=== PATIENT | female | born 1955 | race Caucasian/White ===

== ENCOUNTER 2017-01-29 21:18 | Emergency (ER) | payer BC ==
[2017-01-29] MEDS ORDERED: ONDANSETRON 4 MG/2 ML VIAL IVP STA (22:04)
[2017-01-29] MEDS ORDERED: SODIUM CHLORIDE 0.9% 2,000 ML IV STA (22:04)
--- NOTE | 2017-01-29 22:10 | ED ---
General Adult HPI - General Chief complaint: Abdominal Pain Stated complaint: Dizziness Time Seen by Provider: 01/29/17 21:51 Source: patient, EMS, RN notes reviewed Mode of arrival: EMS Limitations: no limitations - History of Present Illness Initial comments: 61-year-old female presents to the emergency department with a chief complaint of nausea vomiting. Patient was on the float down and she drank all day without eating. She now is having lots of nausea and dizziness. Patient denies any pain any falls.. Patient states that she does not regularly drink. Patient denies any recent fever, chills, shortness of breath, chest pain, back pain, abdominal pain, numbness or tingling, dysuria or hematuria, constipation or diarrhea, headaches or visual changes, or any other current symptoms. - Related Data Home Medications Medication Instructions Recorded Confirmed Estrogen,Dyan/Me-Testosterone 1 tab PO DAILY 01/29/17 01/29/17 [Eemt Ds 1.25-2.5 mg Tablet] Levothyroxine Sodium [Synthroid] 100 mcg PO DAILY 01/29/17 01/29/17 Phentermine HCl 37.5 mg PO DAILY 01/29/17 01/29/17 Allergies Allergy/AdvReac Type Severity Reaction Status Date / Time Sulfa (Sulfonamide Allergy Unknown Verified 01/29/17 21:26 Antibiotics) narcotics Allergy Unknown Uncoded 01/29/17 21:28 Review of Systems ROS Statement: Those systems with pertinent positive or pertinent negative responses have been documented in the HPI. ROS Other: All systems not noted in ROS Statement are negative. Past Medical History Past Medical History: Thyroid Disorder Additional Past Medical History / Comment(s): vertigo History of Any Multi-Drug Resistant Organisms: None Reported Past Surgical History: Hysterectomy, Orthopedic Surgery Additional Past Surgical History / Comment(s): tummy tuck, left knee acl Past Psychological History: No Psychological Hx Reported Smoking Status: Never smoker Past Alcohol Use History: Occasional Past Drug Use History: None Reported General Exam - General Exam Comments Initial Comments: General: The patient is awake and alert, in no distress, and does not appear acutely ill. Eye: Pupils are equal, round and reactive to light, extra-ocular movements are intact; there is normal conjunctiva bilaterally. No signs of icterus. Ears, nose, mouth and throat: There are moist mucous membranes and no oral lesions. Neck: The neck is supple, there is no tenderness. Cardiovascular: There is a regular rate and rhythm. No murmur, rub or gallop is appreciated. Respiratory: Lungs are clear to auscultation, respirations are non-labored, breath sounds are equal. No wheezes, stridor, rales, or rhonchi. Gastrointestinal: Soft, non-distended, non-tender abdomen without masses or organomegaly noted. There is no rebound or guarding present. No CVA tenderness. Bowel sounds are unremarkable. Back: There is no tenderness to palpation in the midline. There is no obvious deformity. No rashes noted. Musculoskeletal: Normal ROM, no tenderness, There is no pedal edema. There is no calf tenderness or swelling. Sensation intact. Pulses equal bilaterally 2+. Neurological: CN II-XII intact, There are no obvious motor or sensory deficits. Coordination appears grossly intact. Speech is normal. Skin: Skin is warm and dry and no rashes or lesions are noted. Psychiatric: Cooperative, appropriate mood & affect, normal judgment. Limitations: no limitations Course Vital Signs 01/29/17 21:19 Temperature 95 F L Pulse Rate 71 Respiratory 24 Rate Blood Pressure 160/84 O2 Sat by Pulse 98 Oximetry Medical Decision Making - Medical Decision Making 61-year-old female presents emergency Department chief complaint of nausea vomiting with alcohol use. At this time the patient is feeling better. This time we did discuss dehydration. We discussed the importance of fluids. We discussed return parameters follow-up and all her questions. She stated that she understood and she is given the plan. She will be discharged. - Lab Data Result diagrams: 01/29/17 22:22 01/29/17 22:22 Lab Results 01/29/17 01/29/17 Range/Units 22:22 22:22 WBC 13.4 H (3.8-10.6) k/uL RBC 4.87 (3.80-5.40) m/uL Hgb 15.1 (11.4-16.0) gm/dL Hct 45.8 (34.0-46.0) % MCV 94.1 (80.0-100.0) fL MCH 31.0 (25.0-35.0) pg MCHC 33.0 (31.0-37.0) g/dL RDW 13.9 (11.5-15.5) % Plt Count 259 (150-450) k/uL Neutrophils % 83 % Lymphocytes % 12 % Monocytes % 3 % Eosinophils % 1 % Basophils % 1 % Neutrophils # 11.1 H (1.3-7.7) k/uL Lymphocytes # 1.7 (1.0-4.8) k/uL Monocytes # 0.4 (0-1.0) k/uL Eosinophils # 0.1 (0-0.7) k/uL Basophils # 0.1 (0-0.2) k/uL Sodium 147 H (137-145) mmol/L Potassium 4.3 (3.5-5.1) mmol/L Chloride 111 H (98-107) mmol/L Carbon Dioxide 20 L (22-30) mmol/L Anion Gap 16 mmol/L BUN 23 H (7-17) mg/dL Creatinine 0.70 (0.52-1.04) mg/dL Est GFR (MDRD) Af Amer >60 (>60 ml/min/1.73 sqM) Est GFR (MDRD) Non-Af >60 (>60 ml/min/1.73 sqM) Glucose 99 (74-99) mg/dL Calcium 8.5 (8.4-10.2) mg/dL Total Bilirubin 0.4 (0.2-1.3) mg/dL AST 34 (14-36) U/L ALT 46 (9-52) U/L Alkaline Phosphatase 87 (38-126) U/L Total Protein 7.2 (6.3-8.2) g/dL Albumin 4.6 (3.5-5.0) g/dL Amylase 43 (30-110) U/L Lipase 154 (23-300) U/L Serum Alcohol 180 mg/dL Disposition Clinical Impression: Dehydration, Alcohol use, Hypernatremia Disposition: HOME SELF-CARE Condition: Stable Instructions: Dehydration (ED) Additional Instructions: Please use medication as discussed. Please follow up with family doctor if symptoms have not improved over the next two days. Please return to the emergency room if your symptoms increase or worsen or for any other concerns. Referrals: Bibiana Kendrick MD [REFERRING] - 1-2 days Time of Disposition: 23:21
[2017-01-29 22:34] LABS: Basophils # (A) 0.1 k/uL (0-0.2); Basophils % (A) 1 %; CHCM 34.2; Eosinophils # (A) 0.1 k/uL (0-0.7); Eosinophils % (A) 1 %; HCT 45.8 % (34.0-46.0); HDW 2.49; HGB 15.1 gm/dL (11.4-16.0); Luc # (Auto) 0.16; Luc % (Auto) 1; Lymphocytes # (A) 1.7 k/uL (1.0-4.8); Lymphocytes % (A) 12 %; MCV 94.1 fL (80.0-100.0); Mean Platelet Volume 7.6; Monocytes # (A) 0.4 k/uL (0-1.0); Monocytes % (A) 3 %; Neutrophils # (A) 11.1 k/uL (1.3-7.7); Neutrophils % (A) 83 %; RBC 4.87 m/uL (3.80-5.40); RDW 13.9 % (11.5-15.5); WBC 13.4 k/uL (3.8-10.6); WBC (Perox) 12.72
[2017-01-29 22:50] LABS: ALT 46 U/L (9-52); AST 34 U/L (14-36); Alkaline Phosphatase 87 U/L (38-126); Amylase 43 U/L (30-110); Anion Gap 16 mmol/L; Blood Urea Nitrogen 23 mg/dL (7-17); Calcium 8.5 mg/dL (8.4-10.2); Carbon Dioxide 20 mmol/L (22-30); Chloride 111 mmol/L (98-107); Glucose 99 mg/dL (74-99); Non-African American GFR(MDRD) >60 (>60 ml/min/1.73 sqM); Potassium 4.3 mmol/L (3.5-5.1); Sodium 147 mmol/L (137-145); Total Bilirubin 0.4 mg/dL (0.2-1.3); Total Protein 7.2 g/dL (6.3-8.2)
[2017-01-29 22:51] LABS: Alcohol 180 mg/dL
[2017-01-29 23:44] VITALS: BP 114/60; PULSE 82; RESP 16; TEMP 97.9
== END 2017-01-29 23:44 | disposition home or self-care (01) ==
LOC: EC 21:18
DX: E86.0 Dehydration (principal); E87.0 Hyperosmolality and hypernatremia; F10.99 Alcohol use, unspecified with unspecified alcohol-induced disorder; E07.9 Disorder of thyroid, unspecified; Z79.890 Hormone replacement therapy; Z88.2 Allergy status to sulfonamides; Z88.5 Allergy status to narcotic agent; Z79.899 Other long term (current) drug therapy
CPT/HCPCS: 36415; 80053; 82150; 83690; 85025; 80320; 99284; 96374; 96361 ×2; J2405

== ENCOUNTER → 2018-10-04 | Outpatient (CLI) | payer BC ==
--- NOTE | 2018-10-08 08:05 | MM ---
Reason for exam: screening (asymptomatic). Last mammogram was performed 2 years and 1 month ago. History: Patient is postmenopausal and has history of high-risk lesion on a previous biopsy at age 57. High risk left breast needle localization of both breasts, December 19, 2012. High risk left breast aspiration of the left breast, December 10, 2012. Benign stereotactic core biopsy of the left breast, December 03, 2004. Taking estrogen for 6 years beginning at age 47. Physical Findings: A clinical breast exam by your physician is recommended on an annual basis and results should be correlated with mammographic findings. MG Screening Mammo w CAD Bilateral CC and MLO view(s) were taken. Prior study comparison: September 15, 2016, mammogram, performed at [facility]. July 12, 2016, mammogram, performed at [facility]. February 24, 2015, mammogram, performed at [facility]. December 10, 2012, left breast digital mammogram. November 28, 2012, bilateral digital screening mammo w/CAD. There are scattered fibroglandular densities. Previous mammotome biopsy in the left breast. No significant changes when compared with prior studies. ASSESSMENT: Benign, BI-RAD 2 RECOMMENDATION: Routine screening mammogram of both breasts in 1 year.
== END | disposition home or self-care (01) ==
LOC: RADMAMWWP 15:19
PROVIDERS: ATTEND Family Medicine
DX: Z12.31 Encounter for screening mammogram for malignant neoplasm of breast (principal)
CPT/HCPCS: 77067

== ENCOUNTER → 2020-05-13 | Outpatient (CLI) | payer BC ==
--- NOTE | 2020-05-13 15:53 | BD ---
EXAMINATION TYPE: Axial Bone Density DATE OF EXAM: 05/13/2020 COMPARISON: NONE CLINICAL HISTORY: M [age], osteoporosis Height: 5 FT 7 IN Weight: 229 FRAX RISK QUESTIONS: Alcohol (3 or more units per day): NO Family History (Parent hip fracture): NO Glucocorticoids (More than 3mos): NO (Ex: prednisone, prednisolone, methylprednisolone, dexamethasone, and hydrocortisone). History of Fracture in Adulthood: NO Secondary Osteoporosis: 1. Type 1 Diabetes: NO 2. Hyperthyroidism: NO 3. Menopause before 45: NO 4. Malnutrition: NO 5. Chronic liver disease: NO Rheumatoid Arthritis: NO Current Tobacco Use: NO RISK FACTORS HISTORY OF: Family History of Osteoporosis: YES Active: YES Diet low in dairy products/other sources of calcium: NO Postmenopausal woman: TOTAL HYST AGE 46 Take estrogen and/or progesterone medications: HAS BEEN ON HRT SINCE AGE 46 Lost more than 2 inches in height since high school: NO MEDICATIONS: Thyroid Medications: YES Which medication: SYNTHROID How Long: UNSURE APPROX 10 YEARS Additional Medications: SYNTHROID, MOTRIN, ADIPEX, Additional History: EXAM MEASUREMENTS: Bone mineral densitometry was performed using the [email or web address] System. Bone mineral density as measured about the Lumbar spine is: ----- L1-L4(G/cm2): 1.389 T Score Values are as follows: ----- L2: 0.4 ----- L3: 2.4 ----- L4: 2.8 ----- L1-L4: 1.7 BASELINE Bone mineral density about the R hip (g/cm2): 0.969 Bone mineral density about the L hip (g/cm2): 0.998 T Score values are as follows: -----R Neck: -0.5 -----L Neck: -0.3 -----R Total: 0.5 -----L Total: 0.6 BASELINE IMPRESSION: Normal (Values between +1 and -1 indicate normal bone mass). Consider repeating this study in 5 year s or sooner if there is some new clinical indication. NOTE: T-SCORE=SD OF THE YOUNG ADULT MEAN.
--- NOTE | 2020-05-15 08:45 | MM ---
Reason for exam: screening (asymptomatic). Last mammogram was performed 1 year and 7 months ago. History: Patient is postmenopausal and has history of high-risk lesion on a previous biopsy at age 57. High risk left breast needle localization of both breasts, December 19, 2012. High risk left breast aspiration of the left breast, December 10, 2012. Benign stereotactic core biopsy of the left breast, December 03, 2004. Taking estrogen for 7 years 7 months beginning at age 47. Physical Findings: A clinical breast exam by your physician is recommended on an annual basis and results should be correlated with mammographic findings. MG Screening Mammo w CAD Bilateral CC and MLO view(s) were taken. XCCL view(s) were taken of the right breast. Prior study comparison: October 04, 2018, bilateral MG screening mammo w CAD. September 15, 2016, mammogram, performed at [facility]. The breast tissue is heterogeneously dense. This may lower the sensitivity of mammography. Previous mammotome biopsy in the left breast. Asymmetric breast tissue left breast near clip placement. There is no discrete abnormality. ASSESSMENT: Benign, BI-RAD 2 RECOMMENDATION: Routine screening mammogram of both breasts in 1 year.
== END | disposition home or self-care (01) ==
LOC: RADMAMWWP 08:53
PROVIDERS: ATTEND Family Medicine
DX: Z12.31 Encounter for screening mammogram for malignant neoplasm of breast (principal); M81.0 Age-related osteoporosis without current pathological fracture
CPT/HCPCS: 77067; 77080

== ENCOUNTER → 2021-05-25 | Outpatient (CLI) | payer BC ==
--- NOTE | 2021-05-27 11:59 | MM ---
Reason for exam: screening (asymptomatic). Last mammogram was performed 1 year ago. History: Patient is postmenopausal and has history of high-risk lesion on a previous biopsy at age 57. High risk left breast needle localization of both breasts, December 19, 2012. High risk left breast aspiration of the left breast, December 10, 2012. Benign stereotactic core biopsy of the left breast, December 03, 2004. Taking estrogen for 7 years 7 months beginning at age 47. Physical Findings: A clinical breast exam by your physician is recommended on an annual basis and results should be correlated with mammographic findings. MG Screening Mammo w CAD Bilateral CC and MLO view(s) were taken. Prior study comparison: May 13, 2020, bilateral MG screening mammo w CAD. October 04, 2018, bilateral MG screening mammo w CAD. The breast tissue is heterogeneously dense. This may lower the sensitivity of mammography. Previous mammotome biopsy in the left breast. There is no discrete abnormality. ASSESSMENT: Benign, BI-RAD 2 RECOMMENDATION: Routine screening mammogram of both breasts in 1 year.
== END | disposition home or self-care (01) ==
LOC: RADMAMWWP 08:46
PROVIDERS: ATTEND Family Medicine
DX: Z12.31 Encounter for screening mammogram for malignant neoplasm of breast (principal); Z78.0 Asymptomatic menopausal state
CPT/HCPCS: 77067

== ENCOUNTER 2022-02-08 15:20 | Emergency (ER) | payer BC ==
[2022-02-08 15:33] VITALS: TEMP 98.2
--- NOTE | 2022-02-08 16:03 | ED ---
General Adult HPI - General Chief complaint: Fall Stated complaint: back pain Time Seen by Provider: 02/08/22 15:29 Source: patient, EMS Mode of arrival: EMS Limitations: no limitations - History of Present Illness Initial comments: Dictation was produced using [employer] dictation software. please excuse any grammatical, word or spelling errors. Chief Complaint: 66-year-old female presents emergency Department with back pain after fall History of Present Illness: A 66-year-old female just prior to arrival she suffered a fall. 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 She slipped on one of the slippery steps. She landed on her right lower back. Patient states the pain was immediate and severe. Denies any numbness feeling paresthesias to the right lower extremity. Patient is brought in by EMS. She received 10 mg of morphine and 4 mg of Zofran. States that the morphine helped. Patient has no other complaints. Patient denies any head trauma. Denies any loss of consciousness. Patient does not take any and I coagulation medications. The ROS documented in this emergency department record has been reviewed and confirmed by me. Those systems with pertinent positive or negative responses have been documented in the HPI. All other systems are other negative and/or noncontributory. PHYSICAL EXAM: General Impression: Alert and oriented x3, not in acute distress HEENT: Normocephalic atraumatic, extra-ocular movements intact, pupils equal and reactive to light bilaterally, mucous membranes moist. Cardiovascular: Heart regular rate and rhythm Chest: Able to complete full sentences, no retractions, no tachypnea Abdomen: abdomen soft, non-tender, non-distended, no organomegaly Musculoskeletal: Pulses present and equal in all extremities, no peripheral edema Back: Mild palpatory tenderness to the right lower back area Motor: no focal deficits noted Neurological: CN II-XII grossly intact, no focal motor or sensory deficits noted Skin: Intact with no visualized rashes Psych: Normal affect and mood ED course: 66-year-old female presents emergency department for lower back pain after fall. Signs upon arrival are within acceptable limits. C-spine of the lumbar and pelvis shows no acute bony abnormalities. Patient will tarry with minimal complications. Presentation consistent with back contusion. Patient be discharged. - Related Data Home Medications Medication Instructions Recorded Confirmed Ascorbic Acid [Vitamin C] 1,000 mg PO DAILY 02/08/22 02/08/22 Biotin [Biotin Disolve] 10,000 mcg PO DAILY 02/08/22 02/08/22 Estrogen- Methyltestos H.S. 1 tab PO HS 02/08/22 02/08/22 Ibuprofen [Motrin] 800 mg PO Q8H PRN 02/08/22 02/08/22 Levothyroxine Sodium [Synthroid] 88 mcg PO DAILY 02/08/22 02/08/22 Magnesium Oxide [Magnesium] 500 mg PO HS 02/08/22 02/08/22 Multivitamins, Thera [Multivitamin 1 tab PO DAILY 02/08/22 02/08/22 (formulary)] [place]-3/Dha/Epa/Fish Oil [Fish Oil 1 cap PO HS 02/08/22 02/08/22 1,000 mg Softgel] Allergies Allergy/AdvReac Type Severity Reaction Status Date / Time Iodinated Contrast Media Allergy Rash/Hives Verified 02/08/22 16:31 Sulfa (Sulfonamide Allergy Unknown Verified 02/08/22 16:31 Antibiotics) narcotics Allergy Nausea & Uncoded 02/08/22 16:31 Vomiting Review of Systems ROS Statement: Those systems with pertinent positive or pertinent negative responses have been documented in the HPI. ROS Other: All systems not noted in ROS Statement are negative. 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 History of Any Multi-Drug Resistant Organisms: None Reported Past Surgical History: Hysterectomy, Orthopedic Surgery Additional Past Surgical History / Comment(s): tummy tuck, left knee acl Past Psychological History: No Psychological Hx Reported Smoking Status: Never smoker Past Alcohol Use History: Occasional Past Drug Use History: None Reported General Exam Limitations: no limitations Course Vital Signs 02/08/22 15:21 Temperature 98.2 F Pulse Rate 55 L Respiratory 18 Rate Blood Pressure 166/92 O2 Sat by Pulse 100 Oximetry Disposition Clinical Impression: Back contusion Disposition: HOME SELF-CARE Condition: Good Instructions (If sedation given, give patient instructions): Fall Prevention for Older Adults (ED), Acute Low Back Pain (ED) Is patient prescribed a controlled substance at d/c from ED?: No Referrals: Maury Holt DO [Primary Care Provider] - 1-2 days Time of Disposition: 17:14
--- NOTE | 2022-02-08 17:00 | CT ---
EXAMINATION TYPE: CT lumbar spine wo con DATE OF EXAM: 02/08/2022 COMPARISON: HISTORY: Fall. Pain CT DLP: 1442.6 mGycm Automated exposure control for dose reduction was used. Images obtained from T12 through S3 vertebra with no contrast. There is severe narrowing of the L5-S1 disc space with spur formation. There is vacuum disc and disc space narrowing at L4-5. There is a minimal subluxation of 3 mm at L4-5. No lumbar compression fractu re. There is hypertrophic facet arthropathy throughout the lumbar spine. There is no evidence of lumbar paraspinal mass. There is lateral recess stenosis and relative spinal stenosis at L4-5 due to the subluxation deformity and facet arthropathy. There are small posterior di sc bulging at L3-4. IMPRESSION: Degenerative first-degree L4-5 spondylolisthesis. Mild spinal stenosis at L4-5 advanced discogenic di sease at L5-S1 with fusion of L5 and S1 bodies. No acute bony abnormality.
--- NOTE | 2022-02-08 17:03 | CT ---
EXAMINATION TYPE: CT pelvis wo con DATE OF EXAM: 02/08/2022 COMPARISON: None HISTORY: fall, pain CT DLP: 673.8 mGycm Automated exposure control for dose reduction was used. Images obtained from the iliac crests to the subtrochanteric femurs without contrast. The sacroiliac joints are intact. The pelvic ring is intact. Hip joint spaces are fairly normal. No e vidence of hip dysplasia. No sign of avascular necrosis. Proximal femurs are intact. The bladder distends smoothly. There is retained fecal material in the rectum that measures 7 cm. No free fluid in the pelvis. Sacrum and coccyx appear intact. No evidence of focal bone destruction. IMPRESSION: Negative CT scan of the pelvis. There is some mild constipation noted. No fracture.
[2022-02-08 17:57] VITALS: BP 153/84; PULSE 61; RESP 16
== END 2022-02-08 17:57 | disposition home or self-care (01) ==
LOC: EC 15:20
DX: S30.0XXA Contusion of lower back and pelvis, initial encounter (principal); E07.9 Disorder of thyroid, unspecified; Z91.041 Radiographic dye allergy status; Z88.2 Allergy status to sulfonamides; Z88.5 Allergy status to narcotic agent; Z79.890 Hormone replacement therapy; W01.0XXA Fall on same level from slipping, tripping and stumbling without subsequent striking against object, initial encounter
CPT/HCPCS: 72131; 72192; 99284

== ENCOUNTER → 2022-06-10 | Outpatient (CLI) | payer BC ==
--- NOTE | 2022-06-10 15:58 | BD ---
EXAMINATION TYPE: Axial Bone Density DATE OF EXAM: 06/10/2022 COMPARISON: 05/13/2020 CLINICAL HISTORY: 66 years year old Female. ICD-10 CODE: Z780 POST MENOPAUSU Height: 67 IN Weight: 218 LBS FRAX RISK QUESTIONS: Secondary Osteoporosis: 3. Menopause before 45: PARTIAL HYST AGE 40; OVARIES REMOVED AGE 45 RISK FACTORS HISTORY OF: History of Wrist Fracture: RT WRIST AGE 12 Family History of Osteoporosis: YES (M) GRANDMOTHER, SISTER Active: Y Postmenopausal woman: PARTIAL HYST AGE 40; OVARIES REMOVED AGE 45 Take estrogen and/or progesterone medications: YES How lon YEARS MEDICATIONS: Thyroid Medications: YES Which medication: Synthroid How Lon+ YEARS Additional Medications: MAGNESIUM, VIT D, MULTI VIT, FISH OIL, VIT C, APPLE CIDER VINEGAR, SYNTHROID, ESTROTEST EXAM MEASUREMENTS: Bone mineral densitometry was performed using the [employer] System. Bone mineral density as measured about the Lumbar spine is: ----- L1-L4(G/cm2): 1.418 T Score Values are as follows: ----- L1: 0.6 ----- L2: 0.6 ----- L3: 2.5 ----- L4: 3.1 ----- L1-L4: 2.0 Bone mineral density has: Increased 2.4% since study of: 05/13/2020 Bone mineral density about the R hip (g/cm2): 0.956 Bone mineral density about the L hip (g/cm2): 0.988 T Score values are as follows: -----R Neck: -0.6 -----L Neck: -0.4 -----R Total: 0.3 -----L Total: 0.5 Bone mineral density has: Decreased -1.5% since study of: 05/13/2020 FRAX%s: The graph provided illustrates a 7.2 chance for a major osteoporotic fx and a 0.4 chance for the hips probability for fx in 10 years time. IMPRESSION: Normal (Values between +1 and -1 indicate normal bone mass). Consider repeating this study in 5 year s or sooner if there is some new clinical indication. NOTE: T-SCORE=SD OF THE YOUNG ADULT MEAN.
--- NOTE | 2022-06-13 18:40 | MM ---
Reason for Exam: Screening (asymptomatic). Last screening mammogram was performed 12 month(s) ago. Patient History: Menarche at age 12. First Full-Term at age 29. Left ovary removed at age 46. Right ovary removed at age 46. Hysterectomy at age 41. Postmenopausal. Currently using Estrogen, beginning at age 47 for 7 years, 7 months. 12/19/2012, Bilateral High risk Excisional Biopsy. 12/10/2012, High risk Cyst Aspiration on the left side. 12/03/2004, Benign Stereotactic Core Biopsy on the left side. Risk Values: Chasity 5 year model risk: 2.8%. NCI Lifetime model risk: 9.9%. Prior Study Comparison: 10/04/2018 Bilateral Screening Mammogram, [facility]. 05/13/2020 Bilateral Screening Mammogram, [facility]. 05/25/2021 Bilateral Screening Mammogram, [facility]. Tissue Density: The breast tissue is heterogeneously dense. This may lower the sensitivity of mammography. Findings: Analyzed By CAD. Bilateral reduction mammoplasty changes demonstrated in the interval. Microclip left breast from prior biopsy. Allowing for interval postsurgical change, areas of asymmetric density appear to have been present previously. No significant change from prior exams. Overall Assessment: Benign, BI-RAD 2 Management: Screening Mammogram of both breasts in 1 year. 1. Patient should continue monthly self breast exams. 2. A clinical breast exam by your physician is recommended on an annual basis. 3. This exam should not preclude additional follow-up of suspicious palpable abnormalities. Electronically signed and approved by: Jenifer Lemons M.D. Radiologist
== END | disposition home or self-care (01) ==
LOC: RADMAMWWP 13:58
PROVIDERS: ATTEND Family Medicine
DX: Z12.31 Encounter for screening mammogram for malignant neoplasm of breast (principal); Z78.0 Asymptomatic menopausal state; Z90.722 Acquired absence of ovaries, bilateral
CPT/HCPCS: 77067; 77080

== ENCOUNTER → 2023-07-10 | Outpatient (CLI) | payer BC ==
--- NOTE | 2023-07-11 08:15 | MM ---
Reason for Exam: Screening (asymptomatic). Last mammogram was performed 1 year(s) and 1 month(s) ago. Patient History: Menarche at age 12. First Full-Term at age 29. Left ovary removed at age 46. Right ovary removed at age 46. Hysterectomy at age 41. Postmenopausal. Currently using Estrogen, beginning at age 47 for 7 years, 7 months. 07/08/2021, Bilateral Reduction. 07/08/2021, Bilateral Reduction. 12/19/2012, Bilateral High risk Excisional Biopsy. 12/10/2012, High risk Cyst Aspiration on the left side. 12/03/2004, Benign Stereotactic Core Biopsy on the left side. Sister had breast cancer at or over age 50. Risk Values: Chasity 5 year model risk: 5.0%. NCI Lifetime model risk: 16.2%. Prior Study Comparison: 05/13/2020 Bilateral Screening Mammogram, [facility]. 05/25/2021 Bilateral Screening Mammogram, [facility]. 06/10/2022 Bilateral MG screening mammo w CAD, [facility]. Tissue Density: The breast tissue is heterogeneously dense. This may lower the sensitivity of mammography. Findings: Analyzed By CAD. There is no suspicious group of microcalcifications or new suspicious mass in either breast. Overall Assessment: Benign, BI-RAD 2 Management: Screening Mammogram of both breasts in 1 year. . Patient should continue monthly self-breast exams. A clinical breast exam by your physician is recommended on an annual basis. This exam should not preclude additional follow-up of suspicious palpable abnormalities. Note on Chasity scores and lifetime risk: 1. A Chasity score greater than 3% is considered moderate risk. If this is the case, consider specialist referral to assess eligibility for a risk reducing agent. 2. If overall lifetime risk for the development of breast cancer is 20% or higher, the patient may qualify for future screening with alternating mammogram and breast MRI. Electronically signed and approved by: Robb Kaba M.D. Radiologis
== END | disposition home or self-care (01) ==
LOC: RADMAMWWP 10:37
PROVIDERS: ATTEND Family Medicine
DX: Z12.31 Encounter for screening mammogram for malignant neoplasm of breast (principal); Z80.3 Family history of malignant neoplasm of breast
CPT/HCPCS: 77063; 77067

== ENCOUNTER 2023-12-03 11:59 | Emergency (ER) | payer BC ==
[2023-12-03 12:19] VITALS: RESP 18; TEMP 97.6
--- NOTE | 2023-12-03 12:34 | ED ---
General Adult HPI - General Chief complaint: ENT Stated complaint: ear pain Time Seen by Provider: 12/03/23 12:19 Source: patient, RN notes reviewed Mode of arrival: ambulatory Limitations: no limitations - History of Present Illness Initial comments: Patient is a 68-year-old female present to the emergency department with concerns for discomfort near the right ear. Patient states symptoms started around 10 days ago. Patient had old cephalosporin at home that she started. Patient then went to urgent care 2 days ago and was switched to Augmentin and given a dose of steroids. There was concern for mastoiditis and was told to go to the emergency department if symptoms did not improve in 2 days to have IV antibiotics and CT scan. Patient states there was concern for mastoiditis. Patient states her discomfort is actually more anterior to the ear. No hearing loss. No headache. No fever. Discomfort does increase with jaw movement - Related Data Home Medications Medication Instructions Recorded Confirmed Ascorbic Acid [Vitamin C] 1,000 mg PO DAILY 02/08/22 02/08/22 Biotin [Biotin Disolve] 10,000 mcg PO DAILY 02/08/22 02/08/22 Estrogen- Methyltestos H.S. 1 tab PO HS 02/08/22 02/08/22 Ibuprofen [Motrin] 800 mg PO Q8H PRN 02/08/22 02/08/22 Levothyroxine Sodium [Synthroid] 88 mcg PO DAILY 02/08/22 02/08/22 Magnesium Oxide [Magnesium] 500 mg PO HS 02/08/22 02/08/22 Multivitamins, Thera [Multivitamin 1 tab PO DAILY 02/08/22 02/08/22 (formulary)] [place]-3/Dha/Epa/Fish Oil [Fish Oil 1 cap PO HS 02/08/22 02/08/22 1,000 mg Softgel] Previous Rx's Medication Instructions Recorded methylPREDNISolone Dose Pack 4 mg PO DIRECTED #21 tab 12/03/23 [Medrol Dose Pack] Allergies Allergy/AdvReac Type Severity Reaction Status Date / Time Iodinated Contrast Media Allergy Rash/Hives Verified 12/03/23 12:19 narcotics Allergy Nausea & Uncoded 12/03/23 12:19 Vomiting Review of Systems ROS Statement: Those systems with pertinent positive or pertinent negative responses have been documented in the HPI. ROS Other: All systems not noted in ROS Statement are negative. Constitutional: Denies: fever Eyes: Denies: eye pain ENT: Reports: as per HPI, ear pain. 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 History of Any Multi-Drug Resistant Organisms: None Reported Past Surgical History: Hysterectomy, Orthopedic Surgery Additional Past Surgical History / Comment(s): tummy tuck, left knee acl Past Psychological History: No Psychological Hx Reported Smoking Status: Never smoker Past Alcohol Use History: Occasional Past Drug Use History: None Reported General Exam Limitations: no limitations General appearance: alert, in no apparent distress Head exam: Present: normocephalic Eye exam: Present: normal appearance ENT exam: Present: normal oropharynx, TM's normal bilaterally, other (Mild discomfort region of the right TMJ. No tenderness or swelling or erythema of the mastoids.) Neck exam: Present: normal inspection. Absent: tenderness, meningismus, lymphadenopathy Respiratory exam: Present: normal lung sounds bilaterally Cardiovascular Exam: Present: regular rate, normal rhythm Back exam: Present: normal inspection Neurological exam: Present: alert, CN II-XII intact Psychiatric exam: Present: normal affect, normal mood Skin exam: Present: normal color. Absent: erythema Course Vital Signs 12/03/23 12:15 Temperature 97.6 F Pulse Rate 79 Respiratory 18 Rate Blood Pressure 137/90 O2 Sat by Pulse 96 Oximetry Medical Decision Making - Medical Decision Making Was pt. sent in by a medical professional or institution (, PA, OUTSIDE SALES INSPECTOR, urgent care, hospital, or fpc...) When possible be specific @ -Patient was sent by urgent care Did you speak to anyone other than the patient for history (EMS, parent, family, police, friend...)? What history was obtained from this source @ -No Did you review nursing and triage notes (agree or disagree)? Why? @ -I reviewed and agree with nursing and triage notes Were old charts reviewed (outside hosp., previous admission, EMS record, old EKG, old radiological studies, urgent care reports/EKG's, fpc records)? Report findings @ -No old charts were reviewed Differential Diagnosis (chest pain, altered mental status, abdominal pain women, abdominal pain men, vaginal bleeding, weakness, fever, dyspnea, syncope, headache, dizziness, GI bleed, back pain, seizure, CVA, palpatations, mental health, musculoskeletal)? @ -Differential Headache: Migraine, tension, cluster, carbon monoxide, central venous thrombosis, pension karma temporal arteritis, acute closure glaucoma, intercranial hemorrhage, mastoiditis, sinusitis, head injury, this is not meant to be an all-inclusive list. EKG interpreted by me (3pts min.). @ -As above X-rays interpreted by me (1pt min.). @ -None done CT interpreted by me (1pt min.). @ -CT scan mastoids without acute abnormality U/S interpreted by me (1pt. min.). @ -None done What testing was considered but not performed or refused? (CT, X-rays, U/S, labs)? Why? @ -None What meds were considered but not given or refused? Why? @ -None Did you discuss the management of the patient with other professionals (professionals i.e. , PA, OUTSIDE SALES INSPECTOR, lab, RT, psych nurse, social service worker, informatics analyst, teacher, security flex utility officer, egg caser)? Give summary @ -No Was smoking cessation discussed for >3mins.? @ -No Was critical care preformed (if so, how long)? @ -No Were there social determinants of health that impacted care today? How? (Homelessness, low income, unemployed, alcoholism, drug addiction, transportation, low edu. Level, literacy, decrease access to med. care, shelter, rehab)? @ -No Was there de-escalation of care discussed even if they declined (Discuss DNR or withdrawal of care, Hospice)? DNR status @ -No What co-morbidities impacted this encounter? (DM, HTN, Smoking, COPD, CAD, Cancer, CVA, ARF, Chemo, Hep., AIDS, mental health diagnosis, sleep apnea, morbid obesity)? @ -None Was patient admitted / discharged? Hospital course, mention meds given and route, prescriptions, significant lab abnormalities, going to OR and other pertinent info. @ -Patient presents from urgent care with concern for mastoiditis. Patient has no clinical signs nor radiological signs of mastoiditis. Patient will be discharged with follow-up with dentist and ENT. Patient would like to try a course of steroids as her previous steroid was a single dose. Undiagnosed new problem with uncertain prognosis? @ -No Drug Therapy requiring intensive monitoring for toxicity (Heparin, Nitro, Insulin, Cardizem)? @ -No Were any procedures done? @ -No Diagnosis/symptom? @ -Temporomandibular dysfunction Acute, or Chronic, or Acute on Chronic? @ -Acute Uncomplicated (without systemic symptoms) or Complicated (systemic symptoms)? @ -Default Side effects of treatment? @ -No Exacerbation, Progression, or Severe Exacerbation? @ -No Poses a threat to life or bodily function? How? (Chest pain, USA, MS, pneumonia, PE, COPD, DKA, ARF, appy, cholecystitis, CVA, Diverticulitis, Homicidal, Suicidal, threat to staff... and all critical care pts) @ -No Disposition Clinical Impression: Temporomandibular dysfunction syndrome Disposition: HOME SELF-CARE Condition: Stable Instructions (If sedation given, give patient instructions): Earache (ED), Temporomandibular Disorder (ED) Additional Instructions: Please do follow-up with your primary care physician, dentist, and ENT beginning of the week. Prescription for steroids has been sent to pharmacy. Return for increased pain, fever, swelling, worsening or changing symptoms or other concerns. Prescriptions: methylPREDNISolone Dose Pack [Medrol Dose Pack] 4 mg PO DIRECTED #21 tab Is patient prescribed a controlled substance at d/c from ED?: No Referrals: Maury Holt DO [Primary Care Provider] - 1-2 days Sergey Persaud DO [Doctor of Osteopathic Medicine] - 1-2 days Time of Disposition: 14:18
--- NOTE | 2023-12-03 13:46 | CT ---
EXAMINATION TYPE: CT mastoid wo con DATE OF EXAM: 12/03/2023 COMPARISON: None HISTORY: r tmj/ behind the ear pain pain CT DLP: 403.2 mGycm Automated exposure control for dose reduction was used. Contrast: None Technique: Axial images 1.5 mm thick sections through the petrous ridges and temporal bones. Reconstr ucted images are reviewed. FINDINGS: Mastoid air cells are clear. Sphenoid ethmoid and maxillary sinuses within the [id number] are ther e. Portion of the mandible within the [id number] is intact. Condyles appear intact. Temporomandibular junctions as visualized appear normal. There is mild right septal deviation. Ostiomeatal units are patent. Zygomatic arches are intact. Orbi brendon floors and medial orbital lugo are intact. Temporomandibular junctions appear normal External auditory canals and middle ears and internal auditory canals visualized appear unremarkable. IMPRESSION: 1. MINIMAL SEPTAL DEVIATION. 2. NO SUSPICIOUS OSSEOUS ABNORMALITY TEMPOROMANDIBULAR JUNCTION
[2023-12-03 14:21] VITALS: BP 132/81; PULSE 72
== END 2023-12-03 14:30 | disposition home or self-care (01) ==
LOC: EC 11:59
DX: M26.601 Right temporomandibular joint disorder, unspecified (principal); Z91.041 Radiographic dye allergy status; Z88.8 Allergy status to other drugs, medicaments and biological substances; Z88.5 Allergy status to narcotic agent
CPT/HCPCS: 70486; 99283